=== PATIENT | male | born 1995 | race African-American/Black ===

== ENCOUNTER 2022-10-27 06:14 | Emergency (ER) | payer SELFPAY ==
[2022-10-27] MEDS ORDERED: LIDOCAINE 1% MPF 5 ML VIAL ONE (07:35)
[2022-10-27] MEDS ORDERED: CEFTRIAXONE 250 MG/VIAL ONE (07:36)
[2022-10-27 15:35] LABS: Specific Gravity 1.015 (1.005-1.030); Urine Bacteria None Seen /HPF (<20); Urine Bilirubin NEGATIVE (Negative); Urine Blood Negative (Negative); Urine Clarity Extremely Turbid (Clear); Urine Color Light-Yellow (Yellow); Urine Glucose NEGATIVE (Negative); Urine Mucus Slight /HPF (None Seen); Urine Protein NEGATIVE (Negative); Urine RBC <5 /HPF (None Seen); Urine Urobilinogen Normal (Normal); Urine pH 5.5 (5.0-7.0)
--- NOTE | 2022-10-27 16:43 | EDPHYS ---
Physician Documentation [facility] Name: Kamran Deras Jr Age: 26 yrs Sex: Male : 1995 Arrival Date: 10/27/2022 Time: 06:14 Bed 19 Private MD: ED Physician Sean Cardenas HPI: 10/27 07:11 This 26 yrs old Black Male presents to ER via Ambulatory with complaints of Urinary rn Frequency, Pain With Urination. 07:11 The patient presents with urinary symptoms, dysuria. Onset: The symptoms/episode rn began/occurred at an unknown time. Modifying factors: The symptoms are alleviated by nothing, the symptoms are aggravated by urinating. Severity of symptoms: At their worst the symptoms were mild, in the emergency department the symptoms are unchanged. The patient has not experienced similar symptoms in the past. The patient has not recently seen a physician. Pt reports mild dysuria, at tip of penis, no drainage, no purulence, no fever. Reports possible STD, but has not has intercourse since April. No abd pain. No flank pain. . Historical: - Allergies: 06:25 No Known Allergies; as6 - PMHx: 06:25 Asthma; enlarged colon; as6 - PSHx: 06:25 None; as6 - Immunization history:: Client reports receiving the 2nd dose of the Covid vaccine. - Social history:: Smoking status: Reported history of juuling and/or vaping. Patient uses street drugs, marijuana. - Family history:: not pertinent. - Hospitalizations: : No recent hospitalization is reported. ROS: 07:11 Constitutional: Negative for fever, chills, and weight loss, Cardiovascular: Negative rn for chest pain, palpitations, and edema, Respiratory: Negative for shortness of breath, cough, wheezing, and pleuritic chest pain, Abdomen/GI: Negative for abdominal pain, nausea, vomiting, diarrhea, and constipation, : + dysuria Exam: 07:11 Constitutional: This is a well developed, well nourished patient who is awake, alert, rn and in no acute distress. Abdomen/GI: soft, non-tender Skin: Warm, dry Vital Signs: 06:23 BP 168 / 79; Pulse 97; Resp 18 S; Temp 98.6(O); Pulse Ox 97% on R/A; Weight 108.86 kg as6 (R); Height 5 ft. 4 in. (R); 07:44 BP 160 / 74; Pulse 89; Resp 16; Pulse Ox 96% on R/A; sg5 06:23 Body Mass Index 41.20 (108.86 kg, 162.56 cm) as6 MDM: 07:02 Patient medically screened. rn 07:11 Differential diagnosis: UTI, urethritis, STI. Data reviewed: vital signs, nurses notes, rn and as a result, I will discharge patient. Counseling: I had a detailed discussion with the patient and/or guardian regarding: the historical points, exam findings, and any diagnostic results supporting the discharge/admit diagnosis, the need for outpatient follow up, to return to the emergency department if symptoms worsen or persist or if there are any questions or concerns that arise at home. Special discussion: I discussed with the patient/guardian in detail that at this point there is no indication for admission to the hospital. It is understood, however, that if the symptoms persist or worsen the patient needs to return immediately for re-evaluation. Based on the history and exam findings, there is no indication for further emergent testing or inpatient evaluation. I discussed with the patient/guardian the need to see the primary care provider for further evaluation of the symptoms. ED course: Pt wants treatment for possible STI, urine ordered, patient does not want to stay for results, reports needs to go, cannot stay for results. . Administered Medications: 07:39 Drug: Rocephin (cefTRIAXone) IM 250 mg Route: IM; Site: right deltoid; sg5 Disposition Summary: 10/27/22 07:14 Discharge Ordered Location: Home rn Problem: new rn Symptoms: have improved rn Condition: Stable rn Diagnosis - Dysuria rn Followup: rn - With: Private Physician - When: As needed - Reason: Recheck today's complaints, Re-evaluation by your physician Discharge Instructions: - Discharge Summary Sheet rn - Dysuria rn Forms: - Medication Reconciliation Form rn - Thank You Letter rn - Antibiotic auditor internal - Prescription Opioid Use rn - Patient Portal Instructions rn Prescriptions: - Doxycycline Monohydrate 100 mg Oral Tablet - take 1 tablet by ORAL route every 12 hours for 10 days; 20 tablet; Refills: 0, rn Product Selection Permitted Signatures: Sean Cardenas MD MD rn Slawson, Ashby, RN RN as6 Moody, Becki, RN RN sg5
--- NOTE | 2022-10-27 16:43 | ER ---
Nurse's Notes [facility] Name: Kamran Deras Jr Age: 26 yrs Sex: Male : 1995 Arrival Date: 10/27/2022 Time: 06:14 Bed 19 Private MD: Diagnosis: Dysuria Presentation: 10/27 06:23 Chief complaint: Patient states: c/o pain/burning during urination. Coronavirus screen: as6 At this time, the client does not indicate any symptoms associated with coronavirus-19. Ebola Screen: No symptoms or risks identified at this time. Initial Sepsis Screen: Does the patient meet any 2 criteria? No. Patient's initial sepsis screen is negative. Does the patient have a suspected source of infection? No. Patient's initial sepsis screen is negative. Risk Assessment: Do you want to hurt yourself or someone else? Patient reports no desire to harm self or others. Onset of symptoms was October 25, 2022. 06:23 Method Of Arrival: Ambulatory as6 06:23 Acuity: SOPHIA 4 as6 Triage Assessment: 07:44 General: Appears in no apparent distress. comfortable, Behavior is calm, cooperative, sg5 appropriate for age. Historical: - Allergies: 06:25 No Known Allergies; as6 - PMHx: 06:25 Asthma; enlarged colon; as6 - PSHx: 06:25 None; as6 - Immunization history:: Client reports receiving the 2nd dose of the Covid vaccine. - Social history:: Smoking status: Reported history of juuling and/or vaping. Patient uses street drugs, marijuana. - Family history:: not pertinent. - Hospitalizations: : No recent hospitalization is reported. Screenin:42 [facility] ED Fall Risk Assessment (Adult) History of falling in the last 3 months, sg5 including since admission No falls in past 3 months (0 pts). Abuse screen: Denies threats or abuse. Nutritional screening: No deficits noted. Tuberculosis screening: No symptoms or risk factors identified. Assessment: 07:42 Reassessment: Patient appears in no apparent distress at this time. No changes from sg5 previously documented assessment. Patient and/or family updated on plan of care and expected duration. Pain level reassessed. Patient is alert, oriented x 3, equal unlabored respirations, skin warm/dry/pink. Pain: Is intermittent. Vital Signs: 06:23 BP 168 / 79; Pulse 97; Resp 18 S; Temp 98.6(O); Pulse Ox 97% on R/A; Weight 108.86 kg as6 (R); Height 5 ft. 4 in. (R); 07:44 BP 160 / 74; Pulse 89; Resp 16; Pulse Ox 96% on R/A; sg5 06:23 Body Mass Index 41.20 (108.86 kg, 162.56 cm) as6 ED Course: 06:14 Patient arrived in ED. ag3 06:24 Triage completed. as6 06:26 Arm band placed on. as6 07:02 Sean Cardenas MD is Attending Physician. rn 07:03 Becki Moody, SOLIS is Primary Nurse. sg5 07:42 Patient has correct armband on for positive identification. Call light in reach. sg5 Valuables Left with patient. Provided Education on: prescription doxycycline monohydrate and reactions. 07:42 No provider procedures requiring assistance completed. Patient did not have IV access sg5 during this emergency room visit. Administered Medications: 07:39 Drug: Rocephin (cefTRIAXone) IM 250 mg Route: IM; Site: right deltoid; sg5 Medication: 07:42 VIS not applicable for this client. sg5 Outcome: 07:14 Discharge ordered by . rn 07:42 Discharged to home ambulatory. sg5 07:42 Condition: good 07:42 Discharge instructions given to patient, Instructed on discharge instructions, follow up and referral plans. 07:45 Patient left the ED. sg5 Signatures: Sean Cardenas MD MD rn Gomez, Alice ag3 Lucio Rodriguez RN RN as6 Becki Moody, SOLIS RN sg5
[2022-10-27 18:25] VITALS: TEMP 98.6
[2022-10-27 18:26] VITALS: BP 160/74; O2SAT 96
== END 2022-10-27 07:45 | disposition home or self-care (01) ==
LOC: ER 06:14
DX: R30.0 Dysuria (principal); J45.909 Unspecified asthma, uncomplicated; F17.290 Nicotine dependence, other tobacco product, uncomplicated
CPT/HCPCS: 81001; 96372; 99284; J0696; J2001